=== PATIENT | male | born 1965 | race Caucasian/White ===

== ENCOUNTER → 2017-10-22 | Outpatient (CLI) | payer OTHER ==
--- NOTE | 2017-11-12 10:53 | SLEEP ---
[address] [address] SLEEP STUDY REPORT Name: JAQUELINE OSORIO Room: [facility] Hosea#: [id number] Admission: 10/22/17 Attend Phys: Aubree Muñiz DO Discharge: Date of : 61 Report #: [id number] THIS REPORT FOR: //name// CC: Aubree Muñiz This study has been reviewed in its entirety by a board certified sleep specialist DATE OF SERVICE: 10/24/2017 INDICATION FOR SLEEP STUDY: Hypersomnia. INTERPRETATION: Total duration of the study is 471 minutes. During this time duration, we recorded multiple sleep related respiratory events. These included 113 hypopneas in addition to 55 obstructive apneas and 4 central apneas with an overall apnea-hypopnea index of 21.9. Body position data indicates the patient was lying supine throughout the sleep study. There is also nocturnal hypoxemia observed, 11.4 minutes were spent below an O2 saturation of 88%. Mean heart rate was 72. IMPRESSION: Obstructive sleep apnea with nocturnal hypoxemia. See details above. RECOMMENDATIONS: Options include either the use of a CPAP auto titrated device or obtaining an in-lab sleep study for positive airway pressure titration. Considering the severity of the patient's obstructive sleep apnea, I would favor obtaining an in-lab sleep study for positive airway pressure titration. Clinical correlation is advised. <ELECTRONICALLY SIGNED> By: Jc Bravo MD 11/12/17 [id number] Bravo MD /[place]
== END ==
LOC: M.SLEEPLAB 15:00
DX: G47.33 Obstructive sleep apnea (adult) (pediatric) (principal); G47.10 Hypersomnia, unspecified